=== PATIENT | female | born 1950 | race Caucasian/White ===

== ENCOUNTER 2017-06-07 13:40 | Outpatient (CLI) | payer OTHER | END 2017-06-07 13:41 | disposition home or self-care (01) | LOC: AMBL 13:40 | PROVIDERS: ATTEND Internal Medicine | DX: R51 Headache (principal); R53.1 Weakness; I95.9 Hypotension, unspecified; R61 Generalized hyperhidrosis; E11.9 Type 2 diabetes mellitus without complications; I10 Essential (primary) hypertension; Z95.5 Presence of coronary angioplasty implant and graft; X30.XXXA Exposure to excessive natural heat, initial encounter ==